=== PATIENT | female | born 1945 | race Hispanic/Latino ===

== ENCOUNTER 2023-08-13 16:28 | Emergency (ER) | payer OTHER ==
[2023-08-13] MEDS ORDERED: GABAPENTIN 300 MG CAP ONE (16:56)
--- NOTE | 2023-08-13 17:29 | RAD REPORT ---
EXAM DESCRIPTION: CTAbdomen Pelvis Wo Contrast - 08/13/2023 5:08 pm CLINICAL HISTORY: low back pain COMPARISON: Abdomen Pelvis Wo Contrast dated 08/04/2023; Abdomen Pelvis W Contrast dated 4No comparisons TECHNIQUE: CT of the abdomen and pelvis was performed. All CT scans are performed using dose optimization technique as appropriate and may include automated exposure control or mA/KV adjustment according to patient size. FINDINGS: Lower chest: Moderately thickened distal esophagus likely reflecting esophagitis. Liver: Low-density lesion left hepatic lobe is statistically benign. Biliary: Cholelithiasis. Stomach: Question gastric wall thickening. Duodenum: No significant focal abnormality. Pancreas: No significant abnormality. Spleen: No significant abnormality. Adrenal: No suspicious lesions. Kidney/ureter: No hydronephrosis. No renal calculi. Retroperitoneum: No retroperitoneal adenopathy. Vascular: No aneurysm. Atherosclerosis . Bowel: Diverticulosis without diverticulitis.. No bowel obstruction. Normal appendix. Peritoneum: No ascites or free air. Small fat containing right inguinal hernia. Bladder: Mild nonspecific circumferential bladder wall thickening. Reproductive: No adnexal masses. Bones: No acute fracture. Grade 1 anterolisthesis of L4 on L5 . Multilevel degenerative changes are p resent in the spine. Remote right-sided rib fractures. Other: n/a IMPRESSION: No acute intra-abdominal or pelvic finding. Moderately thickened distal esophagus and po ssible gastric wall thickening that could reflect esophagitis and gastritis, respectively. Endoscopy could better evaluate. Cholelithiasis without CT is acute cholecystitis.
[2023-08-13 18:00] LABS: Specific Gravity 1.009 (1.005-1.030); Sqamous Epithelial <5 /HPF (None Seen); Urine Bacteria None Seen /HPF (<20); Urine Bilirubin NEGATIVE (Negative); Urine Blood Negative (Negative); Urine Clarity Clear (Clear); Urine Color Colorless (Yellow); Urine Culture Reflex Order NOT NEEDED; Urine Glucose NEGATIVE (Negative); Urine Ketones 2+ (Negative); Urine Micro Reflex YN NO BILL MICROSCOPIC; Urine Nitrite NEGATIVE (Negative); Urine Protein NEGATIVE (Negative); Urine RBC <5 /HPF (None Seen); Urine Urobilinogen Normal (Normal); Urine WBC <5 /HPF (<5); Urine pH 6.5 (5.0-7.0)
--- NOTE | 2023-08-13 18:09 | ER ---
Nurse's Notes [facility] Name: Maricarmen Crespo Age: 78 yrs Sex: Female : 1945 Arrival Date: 08/13/2023 Time: 16:28 Bed 18 Private MD: Romy Vo Diagnosis: Lumbago with sciatica, right side Presentation: 08/12 16:48 Chief complaint: Patient states: Low back pain radiates to CHRISS legs. Coronavirus ld1 screen: At this time, the client does not indicate any symptoms associated with coronavirus-19. Ebola Screen: No symptoms or risks identified at this time. Initial Sepsis Screen: Does the patient meet any 2 criteria? No. Patient's initial sepsis screen is negative. Does the patient have a suspected source of infection? No. Patient's initial sepsis screen is negative. Risk Assessment: Do you want to hurt yourself or someone else? Patient reports no desire to harm self or others. Onset of symptoms was August 13, 2023. 16:48 Method Of Arrival: Ambulatory ld1 16:48 Acuity: OSWALDO 3 ld1 Triage Assessment: 16:48 General: Appears in no apparent distress. comfortable, Behavior is calm, cooperative, ld1 appropriate for age. Pain: Complains of pain in back, right leg and left leg Pain does not radiate. Pain currently is 8 out of 10 on a pain scale. Quality of pain is described as throbbing, Pain began 2-3 days ago. Is continuous. EENT: No signs and/or symptoms were reported regarding the EENT system. Neuro: Level of Consciousness is awake, alert, obeys commands, Oriented to person, place, time, situation. Cardiovascular: Capillary refill < 3 seconds Patient's skin is warm and dry. Respiratory: Airway is patent Respiratory effort is even, unlabored. GI: Abdomen is flat, non-distended. : No signs and/or symptoms were reported regarding the genitourinary system. Derm: No signs and/or symptoms reported regarding the dermatologic system. Musculoskeletal: No signs and/or symptoms reported regarding the musculoskeletal system. Historical: - Allergies: 16:55 No Known Allergies; ld1 - PMHx: 16:55 Hypertensive disorder; ld1 - PSHx: 16:55 None; ld1 - Immunization history:: Adult Immunizations up to date. - Infectious Disease History:: Denies. - Social history:: Smoking status: Patient denies any tobacco usage or history of. Screenin:59 [facility] ED Fall Risk Assessment (Adult) History of falling in the last 3 months, ld1 including since admission No falls in past 3 months (0 pts). Abuse screen: Denies threats or abuse. Denies injuries from another. Nutritional screening: No deficits noted. Tuberculosis screening: No symptoms or risk factors identified. Assessment: 16:59 Reassessment: See triage assessment. ld1 Vital Signs: 16:48 Pulse 116; Resp 18; Temp 97.8(TE); Pulse Ox 98% on R/A; ld1 16:55 BP 168 / 59; ld1 ED Course: 16:31 Patient arrived in ED. rg4 16:32 Romy Vo DO is Private Physician. rg4 16:33 Emilia Alvarez PA-C is PHCP. sb4 16:33 Good May MD is Attending Physician. sb4 16:48 Blanca Pineda, LAMAR is Primary Nurse. ld1 16:48 Arm band placed on right wrist. ld1 16:50 Triage completed. ld1 16:59 Patient has correct armband on for positive identification. Placed in gown. Bed in low ld1 position. Call light in reach. Side rails up X2. Pulse ox on. NIBP on. Door closed. Noise minimized. Warm blanket given. 17:10 CT Abd/Pelvis - Without Contrast In Process Unspecified. EDMS 17:18 [facility] Sent. ld1 18:08 Romy Vo DO is Referral Physician. sb4 18:59 No provider procedures requiring assistance completed. Patient did not have IV access ld1 during this emergency room visit. Administered Medications: 17:18 Drug: Gabapentin PO 300 mg PO once Route: PO; ld1 18:40 Drug: Dexamethasone IM 10 mg IM once Route: IM; Site: right gluteus; ld1 Medication: 16:59 VIS not applicable for this client. ld1 Outcome: 18:08 Discharge ordered by . sb4 18:59 Discharged to home via wheelchair, ld1 18:59 Condition: stable 18:59 Discharge instructions given to patient, Instructed on discharge instructions, follow up and referral plans. Demonstrated understanding of instructions, follow-up care, medications, 18:59 Patient left the ED. ld1 Signatures: Dispatcher [employer] EDMeryl Rizzo rg4 Blanca Pineda RN RN ld1 Emilia Alvarez PA-C PA-C sb4 Corrections: (The following items were deleted from the chart) 16:55 16:55 Home Meds: None; ld1 ld1
--- NOTE | 2023-08-13 18:09 | EDPHYS ---
Physician Documentation [facility] Name: Maricarmen Crespo Age: 78 yrs Sex: Female : 1945 Arrival Date: 08/13/2023 Time: 16:28 Bed 18 Private MD: Romy Vo ED Physician Good May HPI: 08/12 16:49 This 78 yrs old Female presents to ER via Unassigned with complaints of Leg sb4 Pain. 16:49 right low back pain x 1 week that radiates down right leg. was seen at urgent care 5 sb4 days ago, had negative UA but was discharged with cipro, naproxen, and azo. reports no relief in symptoms. denies any prior injury or previous back issues. Historical: - Allergies: 16:55 No Known Allergies; ld1 - PMHx: 16:55 Hypertensive disorder; ld1 - PSHx: 16:55 None; ld1 - Immunization history:: Adult Immunizations up to date. - Infectious Disease History:: Denies. - Social history:: Smoking status: Patient denies any tobacco usage or history of. ROS: 16:51 Constitutional: Negative for fever, chills, and weight loss, sb4 16:51 Back: Positive for pain at rest, pain with movement, radiated pain, 16:51 All other systems are negative, Exam: 16:52 Head/Face: Normocephalic, atraumatic. Eyes: Extra-ocular motions intact. Periorbital sb4 areas with no swelling, redness, or edema. ENT: Mucous membranes moist. Cardiovascular: Regular rate and rhythm with a normal S1 and S2. Respiratory: Lungs have equal breath sounds bilaterally, clear to auscultation and percussion. No rales, rhonchi or wheezes noted. No increased work of breathing, no retractions or nasal flaring. Abdomen/GI: Soft, non-tender, no distension. Skin: Warm, dry with normal turgor. Normal color with no rashes, no lesions, and no evidence of cellulitis. 16:52 Constitutional: The patient appears in no acute distress, alert, awake, obese, 16:52 Back: Straight leg raises: right lower extremity illicits pain, Vital Signs: 16:48 Pulse 116; Resp 18; Temp 97.8(TE); Pulse Ox 98% on R/A; ld1 16:55 BP 168 / 59; ld1 MDM: 16:35 Patient medically screened. sb4 18:08 Data reviewed: vital signs, nurses notes, lab test result(s), radiologic studies, and sb4 as a result, I will discharge patient. Counseling: I had a detailed discussion with the patient and/or guardian regarding the historical points, exam findings, and any diagnostic results supporting the discharge/admit diagnosis, lab results, radiology results, the need for outpatient follow up, for definitive care, to return to the emergency department if symptoms worsen or persist or if there are any questions or concerns that arise at home. 08/12 16:47 Order name: [facility]; Complete Time: 18:03 sb4 08/12 16:49 Order name: CT Abd/Pelvis - Without Contrast; Complete Time: 17:30 sb4 Administered Medications: 17:18 Drug: Gabapentin PO 300 mg PO once Route: PO; ld1 18:40 Drug: Dexamethasone IM 10 mg IM once Route: IM; Site: right gluteus; ld1 Disposition: 19:09 Co-signature as Attending Physician, Good May MD I reviewed the patient's care rn provided by the Advanced Practice Provider and agree with the diagnosis and treatment plan. Disposition Summary: 08/13/23 18:08 Discharge Ordered Notes: Location: Home sb4 Problem: new sb4 Symptoms: have improved sb4 Condition: Stable sb4 Diagnosis - Lumbago with sciatica, right side sb4 Followup: sb4 - With: Romy Vo, DO - When: As needed - Reason: Recheck today's complaints, Re-evaluation by your physician Discharge Instructions: - Discharge Summary Sheet sb4 - Sciatica sb4 Forms: - Patient Portal Instructions sb4 - Leadership Thank You Letter sb4 Prescriptions: - gabapentin 100 mg Oral capsule - take 2 capsule ORAL route every 8 hours; 20 capsule; Refills: 0, Product sb4 Selection Permitted - Medrol (Spencer) 4 mg Oral Tablets, Dose Pack - take 1 tablet ORAL route as directed - follow package instructions; 1 packet; sb4 Refills: 0, Product Selection Permitted - Cyclobenzaprine 5 mg Oral Tablet - take 1 tablet ORAL route 3 times per day As needed; 15 tablet; Refills: 0, sb4 Product Selection Permitted Signatures: Dispatcher [employer] EDMS Good May MD MD rn Pineda, LAMAR Rios RN ld1 Emilia Alvarez PA-C PACaitlyn sb4 Corrections: (The following items were deleted from the chart) 16:48 16:48 Urinalysis W/Microscopic+U.LAB.BRZ ordered. EDMS EDMS 16:49 16:49 Abdomen Pelvis Wo Con+CT.RAD.BRZ ordered. EDMS EDMS 16:55 16:55 Home Meds: None; ld1 ld1
[2023-08-13] MEDS ORDERED: dexAMETHasone 10 MG/ML VIAL ONE (18:49)
[2023-08-13 19:32] VITALS: BP 168/59; TEMP 97.8; O2SAT 98
== END 2023-08-13 18:59 | disposition home or self-care (01) ==
LOC: ER 16:28
DX: M54.41 Lumbago with sciatica, right side (principal)
CPT/HCPCS: 81001; 74176; 96372; 99284; J1100